=== PATIENT | female | born 1965 | race Two or more races ===

== ENCOUNTER 2024-09-27 18:07 | Emergency (ER) | payer MEDICAID ==
[~2024-09-27] VITALS: Ht 160 cm; Wt 115.8 kg
[2024-09-27 19:20] LABS: Basophils # (auto) 0 10 ^3/uL (0-0.2); Basophils % (auto) 0.8 % (0.0-2.0); Eosinophils # (auto) 0.1 10 ^3/uL (0-0.8); Eosinophils % (auto) 1.1 % (0.0-7.0); Hemoglobin 13.5 g/dL (12.2-16.2); Lymphocytes # (auto) 1.8 10 ^3/uL (0.4-5.4); Lymphocytes % (auto) 30.1 % (10.0-50.0); Mean Corpuscular Hemoglobin 27.2 pg (28.0-32.0); Mean Corpuscular Hgb Conc. 34.7 g/dL (32.0-36.0); Mean Corpuscular Volume 78.4 fL (80.0-100.0); Monocytes # (auto) 0.3 10 ^3/uL (0-1.3); Monocytes % (auto) 5.8 % (0.0-12.0); Neutrophils # (auto) 3.7 10 ^3/uL (1.6-8.6); Neutrophils % (auto) 62.2 % (37.0-80.0); Nucleated Red Blood Cells % 0.1 %; Platelet Count (auto) 216 10^3/uL (140-450); Red Blood Cells 4.97 10^6/uL (4.0-5.20)
--- NOTE | 2024-09-27 19:29 | DVH ---
CLINICAL INDICATION: right hand pain TECHNIQUE: 3 radiographic views of the right hand were obtained. Comparison: None FINDINGS/IMPRESSION: There is a minimally displaced distal tuft fracture right 3rd finger. Osteoarthritic changes The visualized joint space is well maintained. The alignment is anatomical. There is no radiopaque foreign body.
[2024-09-27 19:42] LABS: Anion Gap 8 (5-15); Carbon Dioxide 26 mmol/L (20-31); Chloride 101 mmol/L (98-107); Potassium 3.9 mmol/L (3.5-5.1)
[2024-09-27 19:44] LABS: Sodium 135 mmol/L (136-145)
[2024-09-27 19:48] LABS: BUN/Creatinine Ratio 14.7 (10.0-20.0); Blood Urea Nitrogen 14 mg/dL (9-23)
[2024-09-27 19:50] LABS: Glucose 319 mg/dL (74-106)
--- NOTE | 2024-09-27 21:12 | ED.PDOC ---
History of Present Illness HPI Comments 59 y/o morbidly obese F, with a history of uncontrolled DM, presents from [facility] Urgent Care for c/o hyperglycemia, today. Patient reports being found with an elevated blood glucose level of 340 at facility after, initially, being seen for right-3rd and 4th finger injury she sustained 09/24/24. Patient, upon arrival to ED triage, was found with a blood glucose of 314. She endorses on being without her 500mg BID Metformin medication for the past 2x months, due to being in the process of changing her primary care provider, currently. She reports on injuring her fingers by having a glass sliding door closed in on her by accident and only c/o bruising and pain. Denies any polyuria, polyphagia, polydipsia, fever, chills, shortness of breath, chest pain, or other associated symptoms. Chief Complaint: Hyperglycemia Time Seen by MD: 20:30 Reviewed Notes: Nurses Notes, Medications, Allergies Allergies: Coded Allergies: Morphine (Verified Allergy, Unknown, 09/27/24) Uncoded Allergies: CLINDOMYCIN (Allergy, Unknown, 09/27/24) CODIENE (Allergy, Unknown, 09/27/24) Information Source: Patient Mode of Arrival: Ambulatory Severity: Moderate Timing: Hours Duration: Since onset Prehospital treatment: Accucheck Past Medical History PAST MEDICAL HISTORY: DM Surgical History: Denies all surgeries APIGEE DEVELOPER History: Denies all APIGEE DEVELOPER Hx Family History Family History: Unknown Social History Smoker: Non-Smoker Alcohol: Denies ETOH Use Drugs: Denies Drug Use Lives In: Home All Other Systems: Reviewed and Negative (Comprehensive systems review obtained and negative except for what is stated in the HPI.) Physical Exam General Appearance: No Apparent Distress, Obese HEENT: Normal ENT Inspection, Pharynx Normal, TMs Normal Neck: Full Range of Motion, Non-Tender, Normal, Normal Inspection Respiratory: Chest Non-Tender, Lungs Clear, No Accessory Muscle Use, No Respiratory Distress, Normal Breath Sounds Cardiovascular: No Edema, No JVD, No Murmur, No Gallop, Normal Peripheral Pulses, Regular Rate/Rhythm Breast Exam: Deferred Gastrointestinal: No Organomegaly, Non Tender, No Pulsatile Mass, Normal Bowel Sounds, Soft Genitalia: Deferred Pelvic: Deferred Rectal: Deferred Extremities: No calf tenderness, Normal capillary refill, Normal range of motion, Non-tender, No pedal edema, Other (obvious deformity to third distal finger, otherwise normal inspection ) Musculoskeletal : Apperance: Normal Neurologic: Alert, malt roaster II-XII nml as Tested, No Motor Deficits, Normal Affect, Normal Mood, No Sensory Deficits Cerebellar Function: Normal Reflexes: Normal Skin: Dry, Normal Color, Warm Lymphatic: No Adenopathy Was a procedure done? Was a procedure done?: No Differential Dx Considerations may include: hyperglycemia, medication noncompliance, contusions, bruising, fractures, dislocation, among others X-Ray, Labs, Meds, VS Vital Signs Date Time Temp Pulse Resp B/P (MAP) Pulse Ox O2 Delivery O2 Flow Rate FiO2 09/27/24 18:18 97.7 95 18 165/95 (118) 98 97.7 Lab Test 09/27/24 22:30 09/27/24 19:05 09/27/24 18:16 Range/Units Urine Color Yellow Yellow Urine Clarity Turbid H Clear Urine pH 5.5 5.0-9.0 Urine Specific [place] 1.032 1.001-1.035 Urine Protein Trace H Negative Urine Ketones Negative Negative Urine Blood Negative Negative /uL Urine Nitrite Negative Negative Urine Bilirubin Negative Negative Urine Urobilinogen 2 H Negative mg/dL Urine Leukocyte Esterase 1+ Negative /uL Urine RBC 4 0 - 4 /hpf Urine Microscopic WBC 9 H 0-5 /HPF Urine Squamous Epithelial Cells Few <5 /hpf Urine Amorphous Crystals Few None Seen /hpf Urine Bacteria None seen None Seen /hpf Urine Hyaline Casts Mod 0 - 2 /lpf Urine Mucus Few None Seen Urine Glucose 4+ H Normal mg/dL White Blood Count 6.0 4.4-10.8 10^3/uL Red Blood Count 4.97 4.0-5.20 10^6/uL Hemoglobin 13.5 12.2-16.2 g/dL Hematocrit 39.0 36.0-46.0 % Mean Corpuscular Volume 78.4 L 80.0-100.0 fL Mean Corpuscular Hemoglobin 27.2 L 28.0-32.0 pg Mean Corpuscular Hemoglobin Concent 34.7 32.0-36.0 g/dL Red Cell Distribution Width 14.0 11.8-14.3 % Platelet Count 216 140-450 10^3/uL Mean Platelet Volume 7.1 6.9-10.8 fL Neutrophils (%) (Auto) 62.2 37.0-80.0 % Lymphocytes (%) (Auto) 30.1 10.0-50.0 % Monocytes (%) (Auto) 5.8 0.0-12.0 % Eosinophils (%) (Auto) 1.1 0.0-7.0 % Basophils (%) (Auto) 0.8 0.0-2.0 % Neutrophils # (Auto) 3.7 1.6-8.6 10 ^3/uL Lymphocytes # (Auto) 1.8 0.4-5.4 10 ^3/uL Monocytes # (Auto) 0.3 0-1.3 10 ^3/uL Eosinophils # (Auto) 0.1 0-0.8 10 ^3/uL Basophils # (Auto) 0 0-0.2 10 ^3/uL Nucleated Red Blood Cells 0.1 % Sodium Level 135 L 136-145 mmol/L Potassium Level 3.9 3.5-5.1 mmol/L Chloride Level 101 98-107 mmol/L Carbon Dioxide Level 26 20-31 mmol/L Anion Gap 8 5-15 Blood Urea Nitrogen 14 9-23 mg/dL Creatinine 0.95 0.550-1.02 mg/dL Glomerular Filtration Rate Calc 68 >90 mL/min BUN/Creatinine Ratio 14.7 10.0-20.0 Serum Glucose 319 H 74-106 mg/dL Calcium Level 10.0 8.7-10.4 mg/dL POC Glucose 314 H 70-106 mg/dl [place] [address] Ph: [phone] DIAGNOSTIC IMAGING Diagnostic Imaging Report : [id number] Signed PATIENT: AMY ACEVES ACCT: [id number] UNIT: [id number] : 1965 LOC: ER ROOM / BED: / AGE / SEX: 59 / F ADM STATUS: REG ER SERVICE [id number] ORDERING PHYSICIAN: JOHNNIE ELKINS MD PROCEDURE(s): RHAN - R HAND 3 VIEW XRAY REASON: right hand pain ORDER NUMBER(s): [id number], ACCESSION NUMBER(s): [id number] CLINICAL INDICATION: right hand pain TECHNIQUE: 3 radiographic views of the right hand were obtained. Comparison: None FINDINGS/IMPRESSION: There is a minimally displaced distal tuft fracture right 3rd finger. Osteoarthritic changes The visualized joint space is well maintained. The alignment is anatomical. There is no radiopaque foreign body. ATED BY: LAYTON PEDRAZA Jr., DO DICTATED DATE/TIME: 09/27/241925 SIGNED BY: LAYTON PEDRAZA Jr., SIGNED DATE/TIME: 09/27/241925 CC: Time of 1ST Reevaluation: 21:00 Reevaluation 1ST: Unchanged Patient Education/Counseling: Diagnosis, Treatment, Need For Follow Up Family Education/Counseling: No Family Present Additional Information Previous visits: n/a The following tests were ordered, and results were reviewed by me: UA, CBC, BMP, right-hand X-ray Additional Information was gathered from interviewing the following independent historians: n/a I reviewed and agreed with the following test results read by other providers: right-hand X-ray I discussed treatment and results with medical personnel and: Patient Departure 1 Departure Time of Disposition: 22:42 (Patient with uncontrolled diabetes and a finger fracture. Patient was placed in a splint and prescribed for metformin. Discharge patient home with outpatient follow up) Impression: Primary Impression: Uncontrolled diabetes mellitus Qualified Codes: E11.65 - Type 2 diabetes mellitus with hyperglycemia Additional Impression: Closed fracture of tuft of distal phalanx of finger Disposition: 01 HOME / SELF CARE / HOMELESS Condition: Stable Referrals: RAGHAVENDRA SEN MD Additional Instructions: You have a distal fracture of your finger. You were placed in a splint. You were referred to Orthopedic surgery please call for an appointment to ensure your healing well. Your metformin was refilled. Please follow up with your regular doctor. If your symptoms worsen or you have any other concerns please return to the emergency room. e-Prescriptions Metformin Hydrochloride (Metformin Hcl) 500 Mg Tab 1 TAB PO BID for 30 Days, #60 TAB 3 Refills Prov: JOHNNIE ELKINS MD 09/27/24 Critical Care Note Critical Care Time?: No Stability Stability form required: No Heart Score Heart Score: Heart Score Response (Comments) Value History N/A 0 EKG N/A 0 Age N/A 0 Risk Factors N/A 0 Troponin N/A 0 Total 0 I personally scribed for JOHNNIE ELKINS MD ([email or web address]) on 09/27/24 at 21:12. Electronically submitted by Sherwin Tierney ([email or web address]). JOHNNIE ELKINS MD Sep 27, 2024 21:12
[2024-09-27 22:30] LABS: Urine Bacteria None Seen /hpf (None Seen)
[2024-09-27 22:36] LABS: Urine Amorphous Crystal FEW /hpf (None Seen); Urine Blood Negative /uL (Negative); Urine Clarity Turbid (Clear); Urine Color Yellow (Yellow); Urine Hyaline Cast MOD /lpf (0 - 2); Urine Mucus FEW (None Seen); Urine Protein, UAD TRACE (Negative); Urine Specific Gravity 1.032 (1.001-1.035); Urine Squamous Epithelial Cell FEW /hpf (<5); Urine Urobilinogen 2 mg/dL (Negative); Urine WBC 9 /HPF (0-5); Urine pH 5.5 (5.0-9.0)
[2024-09-27] MEDS ORDERED: METF-370 PO (22:44)
[2024-09-27] MEDS: metFORMIN HYDROCHLORIDE 500 MG TAB PO ONE (23:37)
[2024-09-27 23:59] VITALS: BP 163/98; PULSE 94; RESP 21; TEMP 98.1; O2SAT 98
== END 2024-09-28 00:02 | disposition home or self-care (01) ==
LOC: ER 18:07
DX: S62.632A Displaced fracture of distal phalanx of right middle finger, initial encounter for closed fracture (principal); E11.65 Type 2 diabetes mellitus with hyperglycemia; Z88.5 Allergy status to narcotic agent; X58.XXXA Exposure to other specified factors, initial encounter; Y93.89 Activity, other specified; Y92.89 Other specified places as the place of occurrence of the external cause; Y99.8 Other external cause status
CPT/HCPCS: 29130; 36415; 73130; 80048; 81001; 82947; 82962; 85025